=== PATIENT | female | born 1960 | race Caucasian/White ===

== ENCOUNTER 2017-02-24 10:05 | Emergency (ER) | payer BC, MEDICARE ==
[2017-02-24 13:46] LABS: ABS Basophils 0.1 10^3/ul (0-0.2); ABS Eosinophils 0.2 10^3/ul (0-0.6); ABS Lymphocytes 1.7 10^3/ul (1.0-4.8); ABS Monocytes 0.4 10^3/ul (0-0.8); ABS Neutrophils 3.8 10^3/ul (1.5-7.7); ABS Nucleated RBC 0.01 10^3/ul; Eosinophil % 2.6 % (0-6); Hematocrit 40 % (35-47); Hemoglobin 13.9 g/dl (12.0-16.0); Lymphocyte % 28.1 % (25-47); Mean Corpuscular HGB Conc 34 g/dl (31-36); Mean Corpuscular Hemoglobin 30 pg (27-31); Mean Corpuscular Volume 87 fL (80-97); Mean Platelet Volume 8 um3 (7.4-10.4); Nucleated Red Blood Cells % 0.1; Platelet Count 154 10^3/ul (150-450); Red Blood Count 4.64 10^6/ul (4.0-5.4); Red Cell Distribution Width 14 % (10.5-15); White Blood Count 6.1 10^3/ul (3.5-10.8)
[2017-02-24 13:49] LABS: Urine Appearance Clear; Urine Blood 1+ (Negative); Urine Color Straw; Urine Ketones Negative (Negative); Urine Protein Negative (Negative); Urine Specific Gravity 1.006 (1.010-1.030); Urine Urobilinogen Negative (Negative)
--- NOTE | 2017-02-24 15:22 | RAD ---
INDICATION: Headache and dizziness. COMPARISON: Comparison is made with a prior CT of the brain from November 08, 2011. TECHNIQUE: Contiguous axial sections of the brain were obtained from the skull base to the vertex without contrast. FINDINGS: The ventricles, cisterns and sulci are within normal limits. No significant focal abnormality or mass effect is seen. There is no evidence for hemorrhage. There is minimal mucosal thickening within the maxillary sinuses. The remaining paranasal sinuses and mastoid air cells appear clear. IMPRESSION: NO EVIDENCE FOR ACUTE INTRACRANIAL ABNORMALITY.
--- NOTE | 2017-02-24 15:30 | RAD ---
HISTORY: Cough COMPARISONS: January 01, 2013 VIEWS: 1: frontal portable view of the chest at 2:58 PM FINDINGS: LINES AND TUBES: None. CARDIOMEDIASTINAL SILHOUETTE: The cardiomediastinal silhouette is normal for portable technique. PLEURA: The costophrenic angles are sharp. No pleural abnormalities are noted. LUNG PARENCHYMA: The lungs are clear. ABDOMEN: The upper abdomen is clear. There is no subphrenic gas. BONES AND SOFT TISSUES: No bone or soft tissue abnormalities are noted. IMPRESSION: NO ACTIVE CARDIOPULMONARY DISEASE.
[2017-02-24 15:37] LABS: EGFR Non-African American 103.8 (>60)
[2017-02-24] MEDS ORDERED: NS 0.9% 1000 ML* 2,000 ML IV ONE (16:08)
[2017-02-24] MEDS ORDERED: Meclizine TAB* 12.5 MG PO ONE (16:45)
[2017-02-24] MEDS ORDERED: Amoxicillin/Clavulanate TAB* 875 MG PO ONE (16:46)
[2017-02-24 16:58] VITALS: BP 136/57
--- NOTE | 2017-02-24 21:27 | ED ---
Tenzin Mcclure Tecjoon, scribed for Ap Goldman MD on 02/24/17 at 1500 . Dizziness - HPI Summary HPI Summary: This patient is a 54 year old female presenting to [facility] accompanied by with a chief complaint of dizziness and general weakness since 4-5 days ago. Patient states that she has been lightheaded and nauseous over the past few days , to the point where she loses balance while walking. Patient denies changes in vision or hearing. The pain is rated 8/10 in severity. Symptoms aggravated by movement, light. Symptoms alleviated by nothing. Patient additionally reports SOB, nausea, vomiting, subjective fever, headache, upper back pain, neck pain. Patient denies chest pain, palpitation, diarrhea. - History Of Current Complaint Chief Complaint: EDDizziness Stated Complaint: VOMITING, WEAKNESS, VOMITING Time Seen by Provider: 02/24/17 14:45 Hx Obtained From: Patient Onset/Duration: Still Present, Gradually Timing: Days - 4-5 Severity Currently: Severe Character: Lightheaded, Weak, Dizzy Aggravating Factor(s): Position Change, Other - lights Alleviating Factor(s): Nothing Associated Signs And Symptoms: Positive: Negative - chest pain, palpitation, diarrhea., Other: - SOB, dark stools, nausea, vomiting, subjective feve, headache, upper back pain, weakness - Allergies/Home Medications Allergies/Adverse Reactions: Allergies Allergy/AdvReac Type Severity Reaction Status Date / Time NARCOTIC Allergy HEADACHE, Uncoded 10/10/12 18:40 N/V PMH/Surg Hx/FS Hx/Imm Hx Previously Healthy: No Cardiovascular History: Denies: Hx Pacemaker/ICD, Other Cardiovascular Problems/Disorders GI History: Reports: Hx Gastroesophageal Reflux Disease - ON MEDICATION FOR Musculoskeletal History: Reports: Other Musculoskeletal History - [address] fuller Sensory History: Reports: Hx Contacts or Glasses - READING GLASSES Denies: Hx Hearing Aid Opthamlomology History: Reports: Hx Contacts or Glasses - READING GLASSES Neurological History: Reports: Hx Headaches, Hx Migraine - SOMETIMES 1-2 TIMES PER WEEK- PRN MEDIDCATION AND REST, Other Neuro Impairments/Disorders - bad headaches when she looks up,for awhile Psychiatric History: Denies: Hx Panic Disorder - Surgical History Surgery Procedure, Year, and Place: NECK FEB 2012,. C-SECTIONS 1985 1987- TUBAL LIGATION WITH IN 1987 Hx Anesthesia Reactions: No Infectious Disease History: No Infectious Disease History: Denies: Traveled Outside the [place] in Last 30 Days - Family History Known Family History: Positive: Other - cancer Negative: Hypertension - Social History Lives: With Family Alcohol Use: Occasionally Hx Substance Use: No Substance Use Type: Reports: None Hx Tobacco Use: Yes Smoking Status (MU): Heavy Every Day Tobacco Smoker Type: Cigarettes Review of Systems Positive: Fever - subjective Negative: Palpitations, Chest Pain Positive: Shortness Of Breath Positive: Vomiting, Nausea, Other - dark stools. Negative: Diarrhea Positive: Other - upper back pain, neck pain Neurological: Other - dizziness Positive: Headache, Weakness All Other Systems Reviewed And Are Negative: Yes Physical Exam Triage Information Reviewed: Yes Vital Signs On Initial Exam: Initial Vitals Temp Pulse Resp BP Pulse Ox 97.6 F 65 20 142/74 96 02/24/17 10:34 02/24/17 10:34 02/24/17 10:34 02/24/17 10:34 02/24/17 10:34 Vital Signs Reviewed: Yes Appearance: Positive: Well-Appearing, No Pain Distress Skin: Positive: Warm, Skin Color Reflects Adequate Perfusion Head/Face: Positive: Normal Head/Face Inspection Eyes: Positive: EOMI ENT: Positive: Pharyngeal erythema, TM red - bilateral and retracted, Sinus tenderness - bilateral maxillary and frontal tenderness Neck: Positive: Nontender Respiratory/Lung Sounds: Positive: Clear to Auscultation, Breath Sounds Present Cardiovascular: Positive: RRR. Negative: Murmur Abdomen Description: Positive: Nontender Musculoskeletal: Positive: Strength/ROM Intact Neurological: Positive: Normal, Sensory/Motor Intact, Alert, Oriented to Person Place, Time, CN Intact II-III, Normal Gait, Speech Normal Psychiatric: Positive: Normal - [place] Coma Scale Best Eye Response: 4 - Spontaneous Best Motor Response: 6 - Obeys Commands Best Verbal Response: 5 - Oriented Coma Scale Total: 15 Diagnostics - Vital Signs Vital Signs Temp Pulse Resp BP Pulse Ox 02/24/17 13:22 53 175/101 96 02/24/17 13:01 98.1 F 53 18 142/64 99 02/24/17 10:34 97.6 F 65 20 142/74 96 - Laboratory Lab Results: Lab Results 02/24/17 02/24/17 Range/Units 13:36 13:36 WBC 6.1 (3.5-10.8) 10^3/ul RBC 4.64 (4.0-5.4) 10^6/ul Hgb 13.9 (12.0-16.0) g/dl Hct 40 (35-47) % MCV 87 (80-97) fL MCH 30 (27-31) pg MCHC 34 (31-36) g/dl RDW 14 (10.5-15) % Plt Count 154 (150-450) 10^3/ul MPV 8 (7.4-10.4) um3 Neut % (Auto) 62.4 (38-83) % Lymph % (Auto) 28.1 (25-47) % [place] % (Auto) 6.1 (1-9) % Eos % (Auto) 2.6 (0-6) % Baso % (Auto) 0.8 (0-2) % Absolute Neuts (auto) 3.8 (1.5-7.7) 10^3/ul Absolute Lymphs (auto) 1.7 (1.0-4.8) 10^3/ul Absolute Monos (auto) 0.4 (0-0.8) 10^3/ul Absolute Eos (auto) 0.2 (0-0.6) 10^3/ul Absolute Basos (auto) 0.1 (0-0.2) 10^3/ul Absolute Nucleated RBC 0.01 10^3/ul Nucleated RBC % 0.1 Urine Color Straw Urine Appearance Clear Urine pH 5.0 (5-9) Ur Specific [place] 1.006 L (1.010-1.030) Urine Protein Negative (Negative) Urine Ketones Negative (Negative) Urine Blood 1+ H (Negative) Urine Nitrate Negative (Negative) Urine Bilirubin Negative (Negative) Urine Urobilinogen Negative (Negative) Ur Leukocyte Esterase 1+ H (Negative) Urine WBC (Auto) Trace(0-5/hpf) (Absent) Urine RBC (Auto) Trace(0-2/hpf) (Absent) Ur Squamous Epith Cells Present H (Absent) Urine Bacteria Absent (Absent) Urine Glucose Negative (Negative) Result Diagrams: 02/24/17 13:36 02/24/17 13:36 Lab Statement: Any lab studies that have been ordered have been reviewed, and results considered in the medical decision making process. - Radiology CXR Xray Interpretation: No Acute Changes - IMPRESSION: NO ACTIVE CARDIOPULMONARY DISEASE IS NOTED. ED physician has reviewed this radiology report. Radiology Interpretation Completed By: Radiologist - CT CT Brain CT Interpretation: No Acute Changes - NO EVIDENCE FOR ACUTE INTRACRANIAL ABNORMALITY. ED physician has reviewed this radiology report. CT Interpretation Completed By: Radiologist - EKG 1523 Cardiac Rate: Bradycardia EKG Rhythm: Sinus Bradycardia - 48 BPM EKG Interpretation: Sinus Bradycardia (48 BPM), Flat T in III and AVF. Re-Evaluation - Re-Evaluation First Eval Re-Evaluation Time: 16:46 Change: Improved Comment: BP repeated and it is 135/57. HR is 57 and sinus on monitor. She is feeling betters. Dizzy Course/Dx - Course Course Of Treatment: 56 yr old female with cough and cold symptoms for over the past week, and with pain in her shoulders and chest with coughing and position change. She has retracted red TMs bilateral, and at times has had feeling of things moving the past few days. Her CT brain is ok. EKG is same as it was on 01/01/2013 without any acute changes. Her labs are OK. Chest xray OK. Plan is treat with augmentin for her sinuses and her ears and give her meclizine as well. Plan to DC home and FU with PMD. Her BP is fine at this point. - Diagnoses Provider Diagnoses: Otitis media of both ears, Sinusitis, Dizziness Discharge - Discharge Plan Condition: Good Disposition: HOME Prescriptions: Amoxicillin/Clavulanate TAB* [Augmentin TAB 875*] 875 mg PO BID #20 tab Meclizine HCl [Meclizine 25] 25 mg PO BID #14 tab Patient Education Materials: Sinusitis (ED), Vertigo (ED), Otitis Media (ED), Hypertension (ED) Referrals: Nasim Bobo, HOME LIGHTING ADVISER [Primary Care Provider] - 2 Days The documentation as recorded by the Tenzin alexander Tecjoon accurately reflects the service I personally performed and the decisions made by me, Ap Goldman MD.
== END 2017-02-24 17:19 | disposition home or self-care (01) ==
LOC: ED 10:05
DX: H66.90 Otitis media, unspecified, unspecified ear (principal); J32.9 Chronic sinusitis, unspecified; R42 Dizziness and giddiness
CPT/HCPCS: 36415; 70450; 71045; 80053; 81003; 81015; 83735; 83880; 84484; 85025; 85379; 87086; 87502; 93005; 99283; A9270-GY